=== PATIENT | female | born 1985 | race Caucasian/White ===

== ENCOUNTER 2016-11-06 14:44 | Emergency (ER) | payer OTHER ==
[2016-11-06 15:12] VITALS: BP 125/82
--- NOTE | 2016-11-16 14:41 | UC ---
Jamaal Edwards SooYoung, scribed for Avelina Madrid MD on 11/06/16 at 1543 . Abdominal Pain Female HPI - HPI Summary HPI Summary: A 31 y/o F presents to [facility] with c/o ongoing hypogastric abd pain onset approx one week ago. Aggravating factors: eating makes her feel more nauseous. Associated sx: mild vaginal spotting. Denies: fever. Pert PSHx: gastric sleeve surgery in 08/2011 at [facility]. Pert PMHx: GERD. Pt is under high stress due to a recent in the family two days ago. LNMP was one month ago, recently got an IUD. 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 - History of Current Complaint Chief Complaint: UCAbdominalPain Stated Complaint: LOWER RIGHT BACK PAIN Hx Obtained From: Patient Hx Last Menstrual Period: September 29; states she is irregular Onset/Duration: Lasting Days - approx one week, Still Present Timing: Constant Pain Intensity: 4 Pain Scale Used: 0-10 Numeric Character: Aching Aggravating Factor(s): Food Associated Signs and Symptoms: Positive: Vaginal Bleeding - mild spotting, Nausea. Negative: Fever Allergies/Adverse Reactions: Allergies Allergy/AdvReac Type Severity Reaction Status Date / Time No Known Allergies Allergy Verified 11/06/16 17:24 Home Medications: Home Medications Bupropion XL* [Wellbutrin XL *] 300 mg PO 11/06/16 [History] Levothyroxine Sodium [Levo-T] 175 mcg PO 11/06/16 [History] Omeprazole [Prilosec] 20 mg PO 11/06/16 [History] Sertraline HCl [Zoloft] 100 mg PO 11/06/16 [History] PMH/Surg Hx/FS Hx/Imm Hx - Additional Past Medical History Additional PMH: Pos: PCOS Previously Healthy: No Endocrine History Of: Reports: Thyroid Disease Denies: Diabetes Cardiovascular History Of: Denies: Cardiac Disorders, Hypertension Respiratory History Of: Reports: Asthma - sports induced Denies: COPD GI/ History Of: Denies: Ulcer - Surgical History Surgical History: Yes Surgery Procedure, Year, and Place: gastric sleeve surgery Aug 2011 - Family History Known Family History: Positive: Cardiac Disease, Hypertension Negative: Diabetes - Social History Occupation: Unemployed Lives: With Family Alcohol Use: Weekly Substance Use Type: Marijuana Smoking Status (MU): Never Smoked Tobacco Review of Systems Gastrointestinal: Abdominal Pain, Other - pos: nausea Genitourinary: Other - pos: mild spotting All Other Systems Reviewed And Are Negative: Yes Physical Exam Triage Information Reviewed: Yes Vital Signs: Initial Vital Signs Temp 98.2 F 11/06/16 15:01 Pulse 75 11/06/16 15:01 Resp 16 11/06/16 15:01 BP 125/82 11/06/16 15:01 Pulse Ox 99 11/06/16 15:01 Vital Signs Reviewed: Yes Eye Exam: Normal ENT Exam: Normal Neck exam: Normal Respiratory Exam: Normal Cardiovascular Exam: Normal Abdominal Exam: Other - tender upper mid abd region. No r/b. + bs, hyperactive. Abd soft. No lisa guarding, but clearly tender. Musculoskeletal Exam: Normal Neurological Exam: Normal Psychological Exam: Normal Skin Exam: Normal - Additional Comments Appearance: Well-Nourished Eye Exam: Normal ENT Exam: Normal Neck exam: Normal, no adenopathy appreciated Respiratory Exam: Normal, no dyspnea, no tachypnea, normal respiratory rate Cardiovascular Exam: Normal Cardiovascular: Heart rate regular, HEART RATE CORRELATES WITH RIGHT RADIAL PULSE, good general skin color, good capillary refill Abdominal Exam: RLQ ABD TENDERNESS, POSITIVE VOLUNTARY GUARDING, NO REBOUND Abdomen Description: No organomegaly, Soft BIMANUAL PELVIC: NO CERVICAL MOTION TENDERNESS, VERY R MILD ADNEXAL TENDERNESS, NO MASS APPRECIATED Bowel Sounds: Present Musculoskeletal Exam: Normal Musculoskeletal: Strength Intact Neurological Exam: Normal: nonfocal, grossly intact Psychological Exam: Normal: conversing easily and appropriately Skin Exam: Normal: no visible or reported rash Abd Pain Female Course/Dx - Course Course Of Treatment: UA Results: Color: Yellow, Character: Clear. Bilirubin: Negative, Urobilirubin: Normal, Ketones: Negative, Ascorbic Acid: Negative, Glucose: Negative, Protein: 30mg/dL, Blood: Negative; pH: 7, Nitrite: Negative, Leukocytes: Negative, Specific [place]: 1.010. test: Negative. Recommend transfer to ED for further evalution and management. Ms Granda expressed understanding and agreement. I spoke with the ED. Ms. Granda declined EMS, ama signed for ems transfer. - Differential Dx/Diagnosis Provider Diagnoses: Acute abd pain - Physician Notification/Consults Discussed Patient Care With: Dr. Fink, ED Physician Time Discussed With Above Provider: 16:17 Instructed by Provider To: Transfer - to [facility] Discharge - Discharge Plan Condition: Stable Disposition: TRANS HIGHER LVL OF CARE FAC Discharge Disposition Comment: trans to [facility] by car The documentation as recorded by the Jamaal romero SooYoung accurately reflects the service I personally performed and the decisions made by me, Avelina Madrid MD.
== END 2016-11-06 16:31 | disposition short-term general hospital (02) ==
LOC: UCEAST 14:44
DX: R10.31 Right lower quadrant pain (principal); R11.0 Nausea; Z98.84 Bariatric surgery status; N93.9 Abnormal uterine and vaginal bleeding, unspecified; Z32.02 Encounter for pregnancy test, result negative; F12.90 Cannabis use, unspecified, uncomplicated
CPT/HCPCS: 81002; 81025; 99202; G0463

== ENCOUNTER 2016-11-06 17:12 | Emergency (ER) | payer OTHER ==
[2016-11-06 18:45] LABS: Urine Bacteria 1+ (Absent); Urine Bilirubin Negative (Negative); Urine Glucose Negative (Negative); Urine Nitrite Negative (Negative)
[2016-11-06 19:24] VITALS: BP 131/73
[2016-11-06 20:26] LABS: Hematocrit 37 % (35-47); Hemoglobin 12.1 g/dl (12.0-16.0); Mean Corpuscular HGB Conc 33 g/dl (31-36); Mean Corpuscular Hemoglobin 29 pg (27-31); Mean Corpuscular Volume 88 fL (80-97); Mean Platelet Volume 9 um3 (7.4-10.4); Red Blood Count 4.15 10^6/ul (4.0-5.4); Red Cell Distribution Width 14 % (10.5-15); White Blood Count 10.1 10^3/ul (3.5-10.8)
[2016-11-06 20:42] LABS: ALT 12 U/L (7-52); AST 13 U/L (13-39); Alkaline Phosphatase 62 U/L (34-104); Anion Gap 6 mmol/L (2-11); BUN/Creatinine Ratio 18.8 (8-20); Blood Urea Nitrogen 16 mg/dL (6-24); C Reactive Protein 16.97 mg/L (< 5.00); CO2 Carbon Dioxide 25 mmol/L (22-32); Calcium 8.8 mg/dL (8.6-10.3); Chloride 105 mmol/L (101-111); EGFR African American 101.7 (>60); EGFR Non-African American 79.1 (>60); Globulin 2.7 g/dL (2-4); Glucose 81 mg/dL (70-100); Lipase < 10 U/L (11.0-82.0); Potassium 3.7 mmol/L (3.5-5.0); Sodium 136 mmol/L (133-145); Total Protein 6.7 g/dL (6.4-8.9)
[2016-11-06] MEDS ORDERED: Iohexol 300* (CONTRAST) 10 ML SDV IV ONE (20:45)
--- NOTE | 2016-11-06 21:30 | RAD ---
CLINICAL HISTORY: Right femoral pain, right lower quadrant tenderness COMPARISON: None TECHNIQUE: Multiple contiguous axial CT scans were obtained of the abdomen and pelvis after the administration of intravenous contrast. Coronal and sagittal multiplanar reformations are submitted for review. Oral contrast was not administered. Delayed images were obtained through the abdomen FINDINGS: LUNG BASES: The lung bases are clear. LIVER: The liver is normal in shape, size, contour, and attenuation. BILE DUCTS: There is no intrahepatic or extrahepatic biliary dilatation. GALLBLADDER: The gallbladder is normal, without pericholecystic inflammatory change. PANCREAS: The pancreas is normal, without mass or ductal dilatation. SPLEEN: Normal in size and appearance. UPPER GI TRACT: Evaluation of the gastrointestinal tract is limited by incomplete gastric distention. There is postsurgical change to the upper GI tract. SMALL BOWEL AND MESENTERY: The small bowel is normal in contour, course, and caliber. There is no obstruction or dilatation. COLON: The colon is normal in contour, course, caliber. There is no pericolonic inflammatory change. There is a tubular, vermiform, hollow viscus that is blind ending, and originates from the cecum, consistent with a normal appendix. There is no periappendiceal inflammatory change. This is best seen on coronal image 44 ADRENALS: Normal bilaterally. KIDNEYS: The kidneys are normal in shape, size, contour, and axis. There is no hydronephrosis or nephrolithiasis. BLADDER: The bladder is smooth in contour. PELVIC ORGANS: An IUD is noted. There is a 3.7 cm right ovarian cyst. AORTA: The aorta is normal. IVC: Unremarkable LYMPH NODES: There is no lymphadenopathy by size criteria. ABDOMINAL WALL: There is no evidence for abdominal wall hernia. BONES AND SOFT TISSUES: The bones and soft tissues are unremarkable. OTHER: None IMPRESSION: NORMAL APPENDIX. RIGHT OVARIAN CYST.
--- NOTE | 2016-11-06 22:59 | ED ---
Anuj Edwards Michael, scribed for Dean Fink MD on 11/06/16 at 2007 . Abdominal Pain/Female - HPI Summary HPI Summary: 31 y/o female was referred to the ED from [facility] presenting with intermittent episodes of the RLQ pain that started one week ago. The pt describes the abd pain as originally sharp and currently the pain is dull/achy. She also c/o nausea, vaginal discharge, and vaginal spotting. She notes the vaginal sx maybe from her IUD. At Urgent Care her pelvic exam was negative. The pt denies fever and urinary sx. The SHx is significant for a gastric sleeve, and the PMHx is significant for hypothyroidism. - History of Current Complaint Chief Complaint: EDAbdPain Stated Complaint: ABD PAIN/SENT FROM [facility] Time Seen by Provider: 11/06/16 19:47 Hx Obtained From: Patient, Medical Records Hx Last Menstrual Period: September 29; states she is irregular Onset/Duration: Gradual Onset, Lasting Weeks, Still Present - 1 week Timing: Intermittent Episode Lasting Severity Initially: Moderate Severity Currently: Moderate Pain Intensity: 4 Pain Scale Used: 0-10 Numeric Location: Discrete At: RLQ Radiates: No Character: Sharp, Dull Associated Signs and Symptoms: Positive: Vaginal Bleeding, Vaginal Discharge, Nausea. Negative: Fever, Urinary Symptoms Allergies/Adverse Reactions: Allergies Allergy/AdvReac Type Severity Reaction Status Date / Time No Known Allergies Allergy Verified 11/06/16 17:24 PMH/Surg Hx/FS Hx/Imm Hx Endocrine/Hematology History: Reports: Hx Thyroid Disease Denies: Hx Diabetes Cardiovascular History: Denies: Hx Hypertension Respiratory History: Reports: Hx Asthma - sports induced Denies: Hx Chronic Obstructive Pulmonary Disease (COPD) GI History: Denies: Hx Ulcer - Surgical History Surgery Procedure, Year, and Place: gastric sleeve surgery Aug 2011 Infectious Disease History: No Infectious Disease History: Denies: Hx Hepatitis, Hx Human Immunodeficiency Virus (HIV), Traveled Outside the [place] in Last 30 Days - Family History Known Family History: Negative: Diabetes - Social History Occupation: Unemployed Lives: Alone Alcohol Use: Weekly Substance Use Type: Reports: Marijuana Smoking Status (MU): Never Smoked Tobacco Review of Systems Negative: Fever Positive: Abdominal Pain, Nausea Positive: other - vaginal discharge/spotting All Other Systems Reviewed And Are Negative: Yes Physical Exam - Summary Physical Exam Summary: General: Comfortable, pleasant, alert HEENT: Moist mucosa, MACI[place]. Neck: soft, supple, no adenopathy, no edema Heart: S1, S2, RRR, no murmurs, rubs, or gallops Lungs: Clear to auscultation, breathing comfortable, no wheezes or rales Abdominal: tender right periumbilical, tender right CVA tenderness without guarding or rebound, negative rovsing, negative psoas. Bowel sounds presents. Extremities: No edema, no calf tenderness Neuro: Alert and oriented x 3 Psych: Logical, coherent Triage Information Reviewed: Yes Vital Signs On Initial Exam: Initial Vitals Temp Pulse Resp BP Pulse Ox 97.8 F 69 16 121/76 100 11/06/16 17:18 11/06/16 17:18 11/06/16 17:18 11/06/16 17:18 11/06/16 17:18 Vital Signs Reviewed: Yes Diagnostics - Vital Signs Vital Signs Temp Pulse Resp BP Pulse Ox 11/06/16 19:21 98.3 F 70 14 131/73 100 11/06/16 18:19 60 18 124/80 100 11/06/16 18:18 97.9 F 11/06/16 17:18 97.8 F 69 16 121/76 100 - Laboratory Lab Results: Lab Results 11/06/16 Range/Units 18:25 Urine Color Yellow Urine Appearance Clear Urine pH 6.0 (5-9) Ur Specific [place] 1.024 (1.010-1.030) Urine Protein Negative (Negative) Urine Ketones Negative (Negative) Urine Blood 2+ H (Negative) Urine Nitrate Negative (Negative) Urine Bilirubin Negative (Negative) Urine Urobilinogen Negative (Negative) Ur Leukocyte Esterase Negative (Negative) Urine WBC (Auto) Trace(0-5/hpf) (Absent) Urine RBC (Auto) 1+(3-5/hpf) H (Absent) Ur Squamous Epith Cells Present H (Absent) Urine Bacteria 1+ H (Absent) Urine Glucose Negative (Negative) Result Diagrams: 11/06/16 20:18 11/06/16 20:18 Lab Statement: Any lab studies that have been ordered have been reviewed, and results considered in the medical decision making process. - CT CT ABD/PEL CT Interpretation: Positive (See Comments) - NORMAL APPENDIX. RIGHT OVARIAN CYST. CT Interpretation Completed By: Radiologist Abdominal Pain Fem Course/Dx - Course Course Of Treatment: She presents with abd pain for the past 7 days with no other worry some sx like fever, diarrhea, or vomiting. Vitals and labs are within nml limits. The CT ABD/PEL shows normal appendix with a right ovarian cyst that maybe the cause of her sx. With fairly benign exam I dont believe there is torsion. - Diagnoses Provider Diagnoses: Abdominal pain Discharge - Discharge Plan Condition: Good Disposition: HOME Patient Education Materials: Abdominal Pain (ED) Additional Instructions: Please follow up with your primary care doctor back in your home town and marketing analyst for the ovarian cyst. The documentation as recorded by the Anuj romero Michael accurately reflects the service I personally performed and the decisions made by me, Dean Fink MD.
== END 2016-11-06 22:29 | disposition home or self-care (01) ==
LOC: ED 17:12
DX: N83.201 Unspecified ovarian cyst, right side (principal); R10.9 Unspecified abdominal pain; N93.9 Abnormal uterine and vaginal bleeding, unspecified; R11.0 Nausea
CPT/HCPCS: 36415; 74177; 80053; 81003; 81015; 83690; 84702; 85025; 86140; 87086; 99282; Q9967